=== PATIENT | female | born 1950 | race Caucasian/White ===

== ENCOUNTER 2017-03-10 07:53 | Inpatient (IN) | payer MEDICARE, OTHER ==
[2017-03-05 14:51] LABS: HEMOGLOBIN 12.4 g/dL (12.0-16.0)
[2017-03-05 15:04] LABS: CHLORIDE, SERUM 108 MMOL/L (96-112); CREATININE 0.95 MG/DL (0.55-1.02); GFR AFRICAN AMERICAN 72 ML/MIN (>=60); GFR NON AFRICAN AMERICAN 62 ML/MIN (>=60); POTASSIUM, SERUM 4.2 MMOL/L (3.5-5.3); SODIUM, SERUM 140 MMOL/L (135-148)
[2017-03-05 15:05] LABS: BUN (BLOOD UREA NITROGEN) 16 MG/DL (6-23); CO2 (CARBON DIOXIDE) 29 MMOL/L (24-34); GLUCOSE, SERUM 133 MG/DL (60-99)
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
--- NOTE | ~2017-03-10 | OP ---
Record Of Operation [facility] [address] [place]. [address] NAME: FREDERIC KENYON : 50 STATUS : ADM IN PAT#: [id number] AGE: 66 ADM/REG DATE : 03/10/17 MR#: [id number] REPORT SERV DATE: 03/15/17 DICTATED BY: LILLIANA LABOY II DATE: 03/15/17 REPORT STATUS : Draft TRANSCRIBED BY: MODL DATE: 03/15/17 DATE OF PROCEDURE: 03/10/2017 PREOPERATIVE DIAGNOSES: 1. Multilevel stenosis. 2. Degenerative scoliosis with L4-5 and L5-S1 spondylolisthesis. 3. Left greater than right lower extremity radiculopathy. POSTOPERATIVE DIAGNOSES: 1. Multilevel stenosis. 2. Degenerative scoliosis with L4-5 and L5-S1 spondylolisthesis. 3. Left greater than right lower extremity radiculopathy. PROCEDURES: 1. Lumbar laminectomy and facetectomy for decompression of the L4, L5, and S1 nerve roots. 2. Posterolateral arthrodesis, L2-3, L3-4, L4-5, and L5-S1. 3. Posterior segmental instrumentation, L2-S1. 4. Use of local autograft, allograft substitute, and bone morphogenic protein. 5. Use of the microscope and stereotactic spinal imaging. SURGEON: Lilliana Laboy M.D. FLUIDS: 1700 mL LR. ESTIMATED BLOOD LOSS: 200 mL. DRAINS: One drain. COMPLICATIONS: None. ANTIBIOTIC: Preoperatively. PREOPERATIVE HISTORY: This is very friendly 66-year-old female, who does have significant degeneration of her lumbar spine including scoliosis, stenosis, as well as spondylolisthesis at L4-5 and L5-S1. We discussed the pros and cons of the surgery. I discussed with her that she does have a certain amount of chronic pain, but did not believe, we can irradiate, specifically with regard to her low back pain. I discussed with her the surgery was better suited for improving upon leg pain versus back pain. However, I did suspect she could get some improvement with her back pain. We did discuss osteoporosis management also. We also discussed the risks of the surgery which include, but not limited to infection, abscess, CSF leak, foot drop, nerve root injury, and a small chance of stroke and . DESCRIPTION OF PROCEDURE: After informed consent was obtained, Ms Kenyon was brought to the operating room at her request. General anesthesia was achieved. She was placed in the prone position. The back was prepped and draped in a sterile fashion. The stereotactic spinal pin was placed into the right iliac crest and the intraoperative CT scan was Record Of Operation [address] [address] NAME: FREDERIC KENYON : 50 STATUS : ADM IN PAT#: [id number] AGE: 66 ADM/REG DATE : 03/10/17 MR#: [id number] REPORT SERV DATE: 03/15/17 DICTATED BY: LILLIANA LABOY II DATE: 03/15/17 REPORT STATUS : Draft TRANSCRIBED BY: ROULA DATE: 03/15/17 completed. Stereotactic guidance was then used throughout the case. Next, the dissection was performed from L2-S1. The deep retractors were placed after the transverse processes were dissected upon including the sacral ala. At this point, the facetectomy was performed at L4-5 and L5-S1. Severe spinal stenosis was identified. The L4, L5, and S1 nerve roots all exhibited significant compression from the ligamentum flavum and from the facets themselves. Please note, the decompression was performed under microscopic visualization. Next, the stereotactic guidance system was used for placement of adequate pedicular fixation bilaterally. A repeat CT scan confirmed acceptable placement of the implants. The bone was felt to be mild to moderately osteoporotic. Next, the rods were then well-assembled and final tightening was performed. We also performed some reduction of her scoliosis with distraction techniques. Next, the area was fully irrigated followed by decortication of the transverse process of L2, L3, L4, L5, and the sacral ala. Local autograft, allograft substitute, and bone morphogenic protein were then placed along the decorticated surfaces. A deep drain was placed followed by standard closure. The patient was then extubated and transferred to the PACU in stable condition. CELINE/ROULA Lilliana Laboy II, M.D. / [id number] CC: Jaxon Delgado II M.D.
--- NOTE | ~2017-03-10 | DS ---
Discharge Summary [facility] [address] [place]. [address] NAME: FREDERIC AVILEZ : 50 STATUS : DIS IN PAT#: [id number] AGE: 66 ADM/REG DATE : 03/10/17 MR#: [id number] REPORT SERV DATE: 03/23/17 DICTATED BY: LILLIANA LABOY II DATE: 03/23/17 REPORT STATUS : Draft TRANSCRIBED BY: ROULA DATE: 03/23/17 Data Collection from hospitalization DISCHARGE DIAGNOSES: 1. Multilevel stenosis. 2. Degenerative scoliosis with L4-5 and L5-S1 spondylolisthesis. 3. Left greater than right lower extremity radiculopathy. 4. Depression. 5. Gastroesophageal reflux disease. 6. History of stroke. 7. Osteoarthritis. 8. Rheumatoid arthritis. 9. Tobacco use. CONSULTATION: Dr. Kirby Araya. PROCEDURES PERFORMED: Lumbar laminectomy and facetectomy for decompression of the L4, L5, and S1 nerve roots; posterolateral arthrodesis L2-3, L3-4, L4-5 and L5-S1; posterior segmental instrumentation, L2-S1; use of local autograft, allograft substitute, and bone morphogenetic protein; use of microscope and stereotactic spinal imaging, 03/10/2017. PATHOLOGY: Bone and soft tissue, lumbar/sacral excision-nonspecific degenerative changes. MEDICATIONS: Celexa 40 mg at bedtime, Colace 100 mg twice a day, Estrace 1 mg at bedtime, Neurontin 900 mg three times a day as needed, Protonix 40 mg twice a day, DuoNeb 3 mL via inhaler every eight hours as instructed, albuterol 0.63 mg via inhaler every four hours as needed, Coumadin 2.5 mg daily as instructed, Proventil two puffs via inhaler every four hours as needed, Tylenol 1000 mg every six hours as needed, Catapres 0.2 mg three times a day as needed, Valium 2 mg one to two tablets three times a day as needed, oxycodone 15 mg one to two tablets every four to six hours as needed, MS Contin 30 mg SR one every 12 hours as needed. CONDITION AT DISCHARGE: Stable. DISPOSITION: The patient was discharged home with diet and activities as instructed. She would follow up with Dr. Tristan Cutler the week following discharge. She would follow up with me three weeks following discharge. HOSPITAL COURSE: This is a 66-year-old female, who has multilevel stenosis. She has degenerative scoliosis with L4-5 and L5-S1 spondylolisthesis. She also has bilateral lower extremity radiculopathy, left greater than right. Treatment options were discussed and it was elected to proceed with surgical intervention. She was admitted to the hospital at this time for further evaluation and treatment. Upon admission, she was taken to the operating room, where she underwent the above-mentioned procedure. She tolerated this well and there were no complications. On postop day one, she was stable. She had a normal respiratory effort. She was evaluated by Physical Therapy. On postop day two, she was tearful due to low back pain. Her lower extremity radiculopathy Discharge Summary [address] [place]. [address] NAME: FREDERIC AVILEZ : 50 STATUS : DIS IN PAT#: [id number] AGE: 66 ADM/REG DATE : 03/10/17 MR#: [id number] REPORT SERV DATE: 03/23/17 DICTATED BY: LILLIANA LABOY II DATE: 03/23/17 REPORT STATUS : Draft TRANSCRIBED BY: ROULA DATE: 03/23/17 was improving. She just complained of uncontrolled back pain. She does have a history of opioid tolerance. Medications were adjusted for better pain control. On the , she still complained of low back pain. 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 We encouraged her to mobilize. She was seen by Dr. Kirby Araya regarding hypotension. She had been on a ROCK ROOM WORKER and was transitioned to p.o. She still required fairly increased levels of medication. After transition to p.o., the patient was noted to have a slight decrease in blood pressure into the 90s/50 systolic. The patient reports that she has these change and fluctuation of blood pressures even at home. She was fairly tearful due to her pain symptoms, although she still reported some lower pain. She said she has not had a good bowel movement since arrival and does have some pain in that area. She had no real nausea or vomiting. She does have shoulder pain at her baseline from her fibromyalgia. She is on O2 for COPD. A nicotine patch was placed for her nicotine use. Her pain had not improved with anything and was worsened by everything, including palpation, moderate to severe and this had been occurring postoperatively. IV fluids were going to be given with lactated Ringer's. Naloxone would be continued as needed. We were going to check an x-ray, urinalysis, and blood cultures. Procalcitonin level was also going to be checked. She was given a dose of Toradol. A dose of Relistor was going to be given and we would then give Movantik suppository enema as needed. On 03/14/2017, she was very drowsy and difficult to arouse. She had had decreased blood pressure through the night. IV fluid bolus was given. The next day, she was more alert. She had no edema. Her dressings were clean, dry, and intact. Discharge planning was performed. On 03/16/2017, she was transfused. She was alert and cooperative. She had no focal deficits. She said she was feeling better. She did have a bowel movement. She was ambulating in the franco. She still complained of significant back pain. She did complain that the catheter hurt. IV fluids were stopped. A clean-catch urinalysis was going to be checked. The Acuna was removed. Coumadin was going to be resumed. Discharge instructions were given. Due to her improved and stable condition, she was discharged home with the above-stated instructions. Information collected by: Evelyn Lin I submit the above information as my discharge summary. TG/ROULA Lilliana Laboy II, M.D. / [id number] CC: Jaxon Delgado II, M.D.
[~2017-03-10 07:53] MED LIST: ACET500CAP PO; ALBUTEROL0.63 MG/3 INH; AMPI500; C2 PO; C25 PO; C5 PO; CAT2 PO; CELEXA40 MG PO; CYMBALTA60 PO; DURA100 TOP; ESTRACE1 MG PO; FLUCON1 PO; GEODON40 MG PO; LYRICA75 PO; MOBIC15 MG PO; NEUR300 PO; P10 PO; P20 PO; PERCOCET 10/3251 TAB PO; PERCOCET1 TA4 PO; PR25 PO; PROTONIX PO; PROTONIX20 MG PO; PROVENTSOL INH; PROVHFA INH; REQUIP2 PO; ROXICODONE15 MG PO; SOMATAB PO; SYMBYAX PO; VITAMIN D1000 UNI1 PO; XANAX1 MG PO; XANAX2 MG PO; ZITHROMAX500 MG; ZYP5 PO; oxygen
[2017-03-10 08:40] LABS: PROTIME (NOT ORD) 12.7 SEC (12.0-14.5)
[2017-03-14 10:46] LABS: BUN (BLOOD UREA NITROGEN) 15 MG/DL (6-23); CALCIUM, SERUM 8.3 MG/DL (8.5-10.4); CHLORIDE, SERUM 106 MMOL/L (96-112); CO2 (CARBON DIOXIDE) 32 MMOL/L (24-34); CREATININE 0.87 MG/DL (0.55-1.02); GFR AFRICAN AMERICAN 80 ML/MIN (>=60); GFR NON AFRICAN AMERICAN 69 ML/MIN (>=60); POTASSIUM, SERUM 3.7 MMOL/L (3.5-5.3); SODIUM, SERUM 139 MMOL/L (135-148)
[2017-03-14 10:47] LABS: BASOPHILS 0.1 %; BASOPHILS ABSOLUTE 0.01 10/3/uL (0.0-0.16); EOSINOPHILS 2.4 %; EOSINOPHILS ABSOLUTE 0.29 10/3/uL (0.0-0.53); GLUCOSE, SERUM 90 MG/DL (60-99); IMMATURE GRANULOCYTES 0.3 %; IMMATURE GRANULOCYTES ABSOLUTE 0.03 10/3/uL (0.0-0.11); LYMPHOCYTES 20.3 %; LYMPHOCYTES ABSOLUTE 2.41 10/3/uL (0.67-4.30); MEAN CORPUSCULAR HEMOGLOB 27.1 pg (26.0-34.0); MEAN CORPUSCULAR VOLUME 86.4 fL (80-100); MEAN PLATELET VOLUME 9.5 fL (9.2-13.0); MONOCYTES 4.8 %; MONOCYTES ABSOLUTE 0.57 10/3/uL (0.21-1.20); NEUTROPHILS 72.1 %; NEUTROPHILS ABSOLUTE 8.55 10/3/uL (2.02-8.40); PLATELET COUNT 263 10/3/uL (150-400); WHITE BLOOD CELLS 11.9 10/3/uL (4.5-10.5)
[2017-03-14 10:54] LABS: HEMATOCRIT 28.7 % (36.0-48.0); MANUAL DIFF NO %; MEAN CORPUS HGB CONC 31.4 g/dL (32.0-36.0); RBC DISTRIBUTION WIDTH 15.4 % (12.0-16.0); RED CELL COUNT 3.32 10/6/uL (4.0-5.6)
[2017-03-14 12:04] LABS: PROCALCITONIN 0.14 ng/mL (<0.5)
[2017-03-15 03:04] LABS: ASCORBIC ACID (UR NOT ORDER) NEG (NEG); BILIRUBIN, URINE NEGATIVE (NEG); KETONE, URINE NEGATIVE (NEG); LEUKOCYTE ESTERASE(NOT OR NEG (NEG); WBC (NOT ORDERED) (RFLEX) 2 (0-5)
[2017-03-15 07:57] LABS: BASOPHILS 0.2 %; BASOPHILS ABSOLUTE 0.02 10/3/uL (0.0-0.16); EOSINOPHILS 5.5 %; EOSINOPHILS ABSOLUTE 0.46 10/3/uL (0.0-0.53); HEMOGLOBIN 7.4 g/dL (12.0-16.0); IMMATURE GRANULOCYTES 0.2 %; IMMATURE GRANULOCYTES ABSOLUTE 0.02 10/3/uL (0.0-0.11); LYMPHOCYTES 26.3 %; LYMPHOCYTES ABSOLUTE 2.21 10/3/uL (0.67-4.30); MEAN CORPUS HGB CONC 31.4 g/dL (32.0-36.0); MEAN CORPUSCULAR HEMOGLOB 26.8 pg (26.0-34.0); MEAN CORPUSCULAR VOLUME 85.5 fL (80-100); MEAN PLATELET VOLUME 9.2 fL (9.2-13.0); MONOCYTES 5.1 %; MONOCYTES ABSOLUTE 0.43 10/3/uL (0.21-1.20); NEUTROPHILS 62.7 %; NEUTROPHILS ABSOLUTE 5.25 10/3/uL (2.02-8.40); PLATELET COUNT 240 10/3/uL (150-400); RBC DISTRIBUTION WIDTH 15.5 % (12.0-16.0); RED CELL COUNT 2.76 10/6/uL (4.0-5.6); WHITE BLOOD CELLS 8.4 10/3/uL (4.5-10.5)
[2017-03-15 07:58] LABS: HEMATOCRIT 23.6 % (36.0-48.0); MANUAL DIFF NO %
[2017-03-15 08:09] LABS: A/G RATIO 0.6 (0.7-1.9); ALBUMIN 1.9 G/DL (3.5-5.0); ALKALINE PHOSPHATASE 127 U/L (45-117); BUN (BLOOD UREA NITROGEN) 13 MG/DL (6-23); CALCIUM, SERUM 8.2 MG/DL (8.5-10.4); CHLORIDE, SERUM 108 MMOL/L (96-112); CO2 (CARBON DIOXIDE) 32 MMOL/L (24-34); CREATININE 0.67 MG/DL (0.55-1.02); GFR AFRICAN AMERICAN 106 ML/MIN (>=60); GFR NON AFRICAN AMERICAN 92 ML/MIN (>=60); GLOBULIN 3.2 G/DL (2.5-4.1); GLUCOSE, SERUM 100 MG/DL (60-99); POTASSIUM, SERUM 4.6 MMOL/L (3.5-5.3); SGOT(AST) 38 U/L (5-40); SGPT(ALT) 28 U/L (5-65); SODIUM, SERUM 144 MMOL/L (135-148); TOTAL BILIRUBIN 0.4 MG/DL (0-1.2); TOTAL PROTEIN 5.1 G/DL (6.0-8.5)
[2017-03-16 08:33] LABS: CALCIUM, SERUM 8.7 MG/DL (8.5-10.4); CHLORIDE, SERUM 110 MMOL/L (96-112); CREATININE 0.67 MG/DL (0.55-1.02); GFR AFRICAN AMERICAN 106 ML/MIN (>=60); GFR NON AFRICAN AMERICAN 92 ML/MIN (>=60); GLUCOSE, SERUM 86 MG/DL (60-99); POTASSIUM, SERUM 4.4 MMOL/L (3.5-5.3); SODIUM, SERUM 140 MMOL/L (135-148)
[2017-03-16 08:34] LABS: BUN (BLOOD UREA NITROGEN) 7 MG/DL (6-23); CO2 (CARBON DIOXIDE) 27 MMOL/L (24-34)
[2017-03-16 09:30] LABS: BASOPHILS 0.3 %; BASOPHILS ABSOLUTE 0.02 10/3/uL (0.0-0.16); EOSINOPHILS 6.1 %; EOSINOPHILS ABSOLUTE 0.47 10/3/uL (0.0-0.53); HEMATOCRIT 24.1 % (36.0-48.0); HEMOGLOBIN 7.6 g/dL (12.0-16.0); IMMATURE GRANULOCYTES 0.3 %; IMMATURE GRANULOCYTES ABSOLUTE 0.02 10/3/uL (0.0-0.11); LYMPHOCYTES 28.9 %; LYMPHOCYTES ABSOLUTE 2.22 10/3/uL (0.67-4.30); MEAN CORPUS HGB CONC 31.5 g/dL (32.0-36.0); MEAN CORPUSCULAR HEMOGLOB 27.6 pg (26.0-34.0); MEAN CORPUSCULAR VOLUME 87.6 fL (80-100); MEAN PLATELET VOLUME 10.2 fL (9.2-13.0); MONOCYTES 5.6 %; MONOCYTES ABSOLUTE 0.43 10/3/uL (0.21-1.20); NEUTROPHILS 58.8 %; NEUTROPHILS ABSOLUTE 4.51 10/3/uL (2.02-8.40); PLATELET COUNT 247 10/3/uL (150-400); RED CELL COUNT 2.75 10/6/uL (4.0-5.6); WHITE BLOOD CELLS 7.7 10/3/uL (4.5-10.5)
[2017-03-16 09:31] LABS: MANUAL DIFF NO %
[2017-03-16 13:52] LABS: ASCORBIC ACID (UR NOT ORDER) NEG (NEG); BILIRUBIN, URINE NEGATIVE (NEG); KETONE, URINE NEGATIVE (NEG); LEUKOCYTE ESTERASE(NOT OR SMALL (NEG); WBC (NOT ORDERED) (RFLEX) 22 (0-5)
[2017-03-16 15:34] LABS: HEMATOCRIT 31.2 % (36.0-48.0); HEMOGLOBIN 10.2 g/dL (12.0-16.0)
[2017-03-16] MEDS ORDERED: V2 PO (16:24)
[2017-03-16] MEDS ORDERED: MSCONTIN PO (16:25)
[2017-06-18] MEDS ORDERED: CELEXA40 MG PO (18:10)
[2017-06-18] MEDS ORDERED: ESTRACE1 MG PO (18:11)
[2017-06-18] MEDS ORDERED: C25 PO (18:11)
[2017-06-18] MEDS ORDERED: LIOR10 PO (18:11)
[2017-06-18] MEDS ORDERED: CAT2 PO (18:12)
[2017-06-18] MEDS ORDERED: PROTONIX PO (18:12)
[2017-06-18] MEDS ORDERED: NEUR600 PO (18:12)
[2017-06-18] MEDS ORDERED: 8 HOUR650 MG PO (18:13)
[2017-06-18] MEDS ORDERED: PR25 PO (18:13)
[2017-06-18] MEDS ORDERED: CYMBALTA60 PO (18:13)
[2017-06-20] MEDS ORDERED: VIBRATAB100 MG PO (15:33)
[2017-06-20] MEDS ORDERED: DURICEF PO (15:33)
[2017-06-20] MEDS ORDERED: V5 PO (15:33)
[2017-06-20] MEDS ORDERED: MSCONT15 PO (15:34)
[2017-06-20] MEDS ORDERED: PERCOCET 10/3251 TAB PO (15:34)
== END 2017-03-16 17:03 | disposition home or self-care (01) | DRG 457 ==
LOC: SDC/OF 07:53 → PACU 13:54 → 3SO 15:34
PROVIDERS: Nurse Practitioner; Orthopaedic Surgery; Physician Assistant; Student in an Organized Health Care Education/Training Program
PROC: 0SG1071 Fusion of 2 or more Lumbar Vertebral Joints with Autologous Tissue Substitute, Posterior Approach, Posterior Column, Open Approach (ICD-10-PCS; principal; 2017-03-10 09:45)
PROC: 0SG3071 Fusion of Lumbosacral Joint with Autologous Tissue Substitute, Posterior Approach, Posterior Column, Open Approach (ICD-10-PCS; 2017-03-10 09:45)
PROC: 4A11X4G Monitoring of Peripheral Nervous Electrical Activity, Intraoperative, External Approach (ICD-10-PCS; 2017-03-10 09:45)
PROC: 30233N0 Transfusion of Autologous Red Blood Cells into Peripheral Vein, Percutaneous Approach (ICD-10-PCS; 2017-03-16)
DX: M41.86 Other forms of scoliosis, lumbar region (principal); D62 Acute posthemorrhagic anemia; I95.9 Hypotension, unspecified; M79.7 Fibromyalgia; F17.210 Nicotine dependence, cigarettes, uncomplicated; K21.9 Gastro-esophageal reflux disease without esophagitis; J44.9 Chronic obstructive pulmonary disease, unspecified; Z86.73 Personal history of transient ischemic attack (TIA), and cerebral infarction without residual deficits
CPT/HCPCS: 36415; 71010; 80048; 80053; 81001; 82962; 83605; 83735; 84145; 85014; 85018; 85025; 85610; 86850; 86870; 86880; 86880-59; 86900; 86901; 86902; 86920; 86922; 87040; 87077; 87086; 87186; 87641; 88304; 88311; 93005; 94640; 97110-GP; 97116-GP; 97161-GP; 97530-GP; A9270-GY; C1713; C1768; G8978-CK-GP; G8979-CJ-GP; J0461; J0690; J1170; J1885; J2250; J2370; J2405; J2710; J3010; J3370; P9016; P9045

== ENCOUNTER 2017-03-23 21:46 | Inpatient (IN) | payer MEDICARE, OTHER ==
[2017-03-22 16:25] LABS: BASOPHILS 0.2 %; BASOPHILS ABSOLUTE 0.02 10/3/uL (0.0-0.16); EOSINOPHILS 0.4 %; EOSINOPHILS ABSOLUTE 0.05 10/3/uL (0.0-0.53); HEMATOCRIT 31.8 % (36.0-48.0); HEMOGLOBIN 9.8 g/dL (12.0-16.0); IMMATURE GRANULOCYTES 0.2 %; IMMATURE GRANULOCYTES ABSOLUTE 0.02 10/3/uL (0.0-0.11); LYMPHOCYTES 9.2 %; LYMPHOCYTES ABSOLUTE 1.11 10/3/uL (0.67-4.30); MEAN CORPUS HGB CONC 30.8 g/dL (32.0-36.0); MEAN CORPUSCULAR HEMOGLOB 26.8 pg (26.0-34.0); MEAN CORPUSCULAR VOLUME 86.9 fL (80-100); MEAN PLATELET VOLUME 9.5 fL (9.2-13.0); MONOCYTES 8.4 %; MONOCYTES ABSOLUTE 1.02 10/3/uL (0.21-1.20); NEUTROPHILS 81.6 %; NEUTROPHILS ABSOLUTE 9.89 10/3/uL (2.02-8.40); RBC DISTRIBUTION WIDTH 15.4 % (12.0-16.0)
[2017-03-22 16:29] LABS: MANUAL DIFF NO %; PLATELET COUNT 365 10/3/uL (150-400); RED CELL COUNT 3.66 10/6/uL (4.0-5.6); WHITE BLOOD CELLS 12.1 10/3/uL (4.5-10.5)
--- NOTE | ~2017-03-23 | IDS ---
Interim Discharge Summary [facility] [address] [place]. [address] NAME: FREDERIC AVILEZ : 50 STATUS : ADM IN [facility]#: [id number] AGE: 66 ADM/REG DATE : 03/24/17 MR#: [id number] REPORT SERV DATE: 03/29/17 DICTATED BY: CHELSEA MCGEE DATE: 03/29/17 REPORT STATUS : Draft TRANSCRIBED BY: MODL DATE: 03/29/17 ADMISSION DATE: 03/24/2017 DISCHARGE DATE: PROBLEM LIST: 1. Sepsis with infected back surgery wound with culture positive for Serratia, the patient's antibiotics was changed to Merrem on 03/28/2017, by Dr. Maier. 2. Chronic pain and chronic opioid use. 3. Postop anemia status post one unit of blood transfusion. 4. Hypotension probably due to opioid use. HISTORY OF PRESENT ILLNESS: This is a 66-year-old female patient who came to the hospital with sepsis picture. Please see dictated H and P. The patient was admitted to the hospital with sepsis, had an abnormal urine analysis as well; however, her clinical pictures were more consistent with wound infection. She was sent to aspiration to intervention radiology. Dr. Mera did the aspiration and sent the culture at that time. He obtained 200 mL of pus. Therefore, the patient was on antibiotics and because of that finding, Dr. Laboy took her to the OR and did an evacuation and incision and drain and cleaned and also that specimen was also growing the Serratia as well. The patient has been managed with broad-spectrum antibiotics. She is on the IMCU due to the hypotension at this point. She is on Levophed lower dose. It is more likely related with her opioid use, she has been on a high dose of opioid use. Therefore, we will try to wean off the Levophed while we are minimizing opioid use, continuing antibiotics, and physical therapy. EKL/MODL Chelsea Mcgee M.D. / [id number] CC: Jaxon Clarke M.D.
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
--- NOTE | ~2017-03-23 | OP ---
Record Of Operation [facility] [address] [place]. [address] NAME: FREDERIC AVILEZ : 50 STATUS : ADM IN [facility]#: [id number] AGE: 66 ADM/REG DATE : 03/24/17 MR#: [id number] REPORT SERV DATE: 03/29/17 DICTATED BY: LILLIANA LABOY II DATE: 03/29/17 REPORT STATUS : Draft TRANSCRIBED BY: MODSwapna DATE: 03/29/17 DATE OF PROCEDURE: 03/26/2017 PREOPERATIVE DIAGNOSES: 1. Status post lumbar fusion, recent. 2. History of recent fevers with inpatient admission. POSTOPERATIVE DIAGNOSES: 1. Status post lumbar fusion, recent. 2. History of recent fevers with inpatient admission. 3. No empiric evidence of postoperative wound infection. PROCEDURE: Exploration of lumbar incision with irrigation of postoperative seroma. SURGEON: Lilliana Laboy M.D. FLUIDS: 300 mL LR. ESTIMATED BLOOD LOSS: 20 mL. [employer]PER[employer]OR [employer]: Rocky Adrian. CULTURES TAKEN: Intraoperatively. PREOPERATIVE HISTORY: This is a 66-year-old female, who is recently status post lumbar decompression and fusion. She was readmitted with fever and possible sepsis. She has had a recent urinary tract infection also. I was asked to see her. Infectious Disease was also seeing her. Her lumbar incision was intact without any erythema, edema, for fluctuance. She was having pain in this area of course, but she is recently status post a rather large surgery. She was recently admitted to the rehab facility overall because she simply was still struggling with postoperative pain control and mobility. This is frankly not acute surprise, given her fairly low pain threshold that we identified during her postoperative course. Dr. Maier notified me on Wednesday afternoon that the patient had purulence in the back. He and I discussed this, and I overall voiced significant doubts as to the validity of this. I frankly have never seen someone have for example 200 mL of purulence in the back without any superficial findings. Again, this patient has no superficial findings in terms of no erythema, drainage. She does not have any fluctuance. She of course did have pain, but of course she is recently status post a large lumbar surgery. To my dismay, it appears that one of the physicians had ordered an aspiration and drainage of the fluid identified as expected on postoperative imaging. This was done without my knowledge or approval. This is a recently status post large lumbar fusion and decompression. Again, Wednesday afternoon, I was notified by Dr. Maier that there was 200 mL of purulence in the area. Again, I found this extremely hard to believe. However, he essentially forced my to take the patient to the operating room based upon this information. Record Of Operation [facility] [address] [place]. [address] NAME: FREDERIC AVILEZ : 50 STATUS : ADM IN PAT#: [id number] AGE: 66 ADM/REG DATE : 03/24/17 MR#: [id number] REPORT SERV DATE: 03/29/17 DICTATED BY: LILLIANA LABOY II DATE: 03/29/17 REPORT STATUS : Draft TRANSCRIBED BY: ROULA DATE: 03/29/17 I discussed this with the patient and the family. In preoperative holding, we once again looked at the lumbar incision which was again normal as it had been the day before. However, again to my dismay, it appeared that there was a CHRISTY drain which had been inserted. This had normal serosanguineous fluid without any cloudiness. DESCRIPTION OF PROCEDURE: At this point, the patient was taken to the operating room, and general anesthesia was achieved. She was placed in the prone position and the back was prepped and draped in the sterile fashion. The incision was then opened. There was no evidence of any purulence in the superficial tissues. The superficial compartment was irrigated. Next, the fascial sutures were removed, and the deep compartment was identified. Again, there was no evidence of any purulence or suspicious fluid. The hardware was identified. A canal was identified and no suspicious findings noted. Deep cultures were taken. The area was now irrigated followed by placement of a CHRISTY drain. The fascia was then closed. The skin and subcutaneous tissues were now closed and standard dressings were applied. The patient was extubated and transferred to the PACU in stable condition. My overall concern is fairly clear above. My other concern is now that she has had a second operation and skin closure which now puts her at risk for a postoperative wound infection which at this point, I do not believe she has had. CELINE/ROULA Lilliana Laboy II, M.D. / [id number] CC: Jaxon Clarke M.D.
--- NOTE | ~2017-03-23 | DS ---
Discharge Summary [facility] [address] [place]. [address] NAME: FREDERIC AVILEZ : 50 STATUS : ADM IN [facility]#: [id number] AGE: 66 ADM/REG DATE : 03/24/17 MR#: [id number] REPORT SERV DATE: 04/02/17 DICTATED BY: Sofia ROGERS DATE: 04/02/17 REPORT STATUS : Draft TRANSCRIBED BY: MODL DATE: 04/02/17 ADMISSION DATE: 03/24/2017 DISCHARGE DATE: 04/02/2017 DIAGNOSES AT DISCHARGE: Lumbar wound infection; culture equals Serratia sepsis, resolved, present on admission; Escherichia coli urinary tract infection, present on admission, treated; chronic pain syndrome, adrenal insufficiency, on chronic Cortef; moderate protein- calorie malnutrition. CONSULTS: Infectious Disease, Spine Surgery, Interventional Radiology. PROCEDURES: CT-guided drainage of lumbar fluid collection done by Dr. Mera, also lumbar exploration of incision and drainage of lumbar fluid collection done by Dr. Laboy on 03/26/2017. BRIEF HOSPITAL COURSE: A 66-year-old female patient was admitted with sepsis, originally felt to be related to UTI with culture positive urine for E coli. However on nearing her antibiotics, she began became ill and spiked a temperature of 103 which necessitated a broader evaluation for the source of her fever. Imaging of her abdomen and spine was obtained showing a large fluid correction around her recent lumbar spine surgery. CT-guided drainage was obtained removing purulent material that was culture positive for Serratia. The patient continued on antimicrobial therapy under the care of Infectious Disease, but her initial antibiotics were transitioned to meropenem based on her culture data and has subsequently been transitioned to high-dose cefepime. The patient was seen by Spine surgery and she did have a washout surgery done with drain placement on 03/26/[address] Laboy. Postoperatively, she has had an uneventful course. She has remained afebrile. She has tolerated her antimicrobial therapy via PICC line without difficulty. Her labs have been unremarkable. She was initially hypotensive on admission. Cortisol levels were inappropriately low. She was given IV Solu-Cortef for roughly 72 hours and transitioned to oral Cortef. She will continue on this in a tapering fashion for the next three weeks after discharge. Arrangements were made on 04/02/2017 for home IV antibiotics. She will have an additional 35 days of IV cefepime under the care of Dr. David Maier, Infectious Disease. We will check weekly CBC, CMP, sedimentation rate, and PT and INR. The patient will discharge home today in stable condition on her home medications with the addition of oral Cortef that will taper as mentioned above and her ongoing IV antimicrobial therapy per Infectious Disease. She will follow up with Dr. Maier in six weeks. She will follow up with Dr. Laboy in approximately two to three weeks and follow up with her primary care provider in approximately one month. Prescriptions for pain medications have been written by Ortho/Spine. I have also written her tapering dose of Cortef for her to use at home. As mentioned above, she will have weekly lab monitoring via home health. We will also set up physical therapy via home health for ongoing mobilization. Of note, her CHRISTY drain was discharged prior to her going home. Of note, greater than 30 minutes was required to assistant counsel the patient regarding her medications to prepare prescriptions to complete discharge med reconciliation form and to provide appropriate documentation. Discharge Summary [address] [address] NAME: FREDERIC AVILEZ : 50 STATUS : ADM IN [facility]#: [id number] AGE: 66 ADM/REG DATE : 03/24/17 MR#: [id number] REPORT SERV DATE: 04/02/17 DICTATED BY: Sofia ROGERS DATE: 04/02/17 REPORT STATUS : Draft TRANSCRIBED BY: ROULA DATE: 04/02/17 DICTATED BY: Sofia Rogers M.D. [facility]/ROULA Sofia Rogers M.D. / [id number] CC: Jaxon Burciaga M.D.
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
[~2017-03-23 21:46] MED LIST changes: +MSCONTIN PO; +V2 PO
[2017-03-23 22:37] LABS: BASOPHILS 0.2 %; BASOPHILS ABSOLUTE 0.02 10/3/uL (0.0-0.16); EOSINOPHILS 0.1 %; EOSINOPHILS ABSOLUTE 0.01 10/3/uL (0.0-0.53); ER CBC TAT 0 Hrs 09 Mins; HEMATOCRIT 29.2 % (36.0-48.0); HEMOGLOBIN 9.5 g/dL (12.0-16.0); IMMATURE GRANULOCYTES 0.2 %; IMMATURE GRANULOCYTES ABSOLUTE 0.02 10/3/uL (0.0-0.11); LYMPHOCYTES 5.8 %; LYMPHOCYTES ABSOLUTE 0.51 10/3/uL (0.67-4.30); MEAN CORPUSCULAR HEMOGLOB 27.9 pg (26.0-34.0); MEAN CORPUSCULAR VOLUME 85.6 fL (80-100); MEAN PLATELET VOLUME 9.3 fL (9.2-13.0); MONOCYTES 6.1 %; MONOCYTES ABSOLUTE 0.53 10/3/uL (0.21-1.20); NEUTROPHILS 87.6 %; NEUTROPHILS ABSOLUTE 7.63 10/3/uL (2.02-8.40); PLATELET COUNT 392 10/3/uL (150-400); RED CELL COUNT 3.41 10/6/uL (4.0-5.6); WHITE BLOOD CELLS 8.7 10/3/uL (4.5-10.5)
[2017-03-23 22:39] LABS: MEAN CORPUS HGB CONC 32.5 g/dL (32.0-36.0)
[2017-03-23 22:40] LABS: MANUAL DIFF NO %
[2017-03-23 22:47] LABS: INTERNATIONAL NORMAL RATI 1.9 UNITS (-); PARTIAL THROMBO TIME 62.6 SEC (22.5-37.2)
[2017-03-23 22:48] LABS: PROTIME (NOT ORD) 21.9 SEC (12.0-14.5)
[2017-03-23 22:51] LABS: ASCORBIC ACID (UR NOT ORDER) NEG (NEG); BILIRUBIN, URINE NEGATIVE (NEG); ER URINALYSIS TAT 0 Hrs 23 Mins; KETONE, URINE NEGATIVE (NEG); LEUKOCYTE ESTERASE(NOT OR LARGE (NEG); NITRITE (URINE) NEG (NEG)
[2017-03-23 22:53] LABS: WBC (NOT ORDERED) (RFLEX) > 182 (0-5)
[2017-03-23 22:54] LABS: A/G RATIO 0.6 (0.7-1.9); ACETAMINOPHEN LEVEL (TYLENOL) < 2.0 MCG/ML (10.0-20.0); ALBUMIN 2.7 G/DL (3.5-5.0); ALCOHOL < 10 MG/DL (0); ALKALINE PHOSPHATASE 191 U/L (45-117); BUN (BLOOD UREA NITROGEN) 15 MG/DL (6-23); CALCIUM, SERUM 9.1 MG/DL (8.5-10.4); CHLORIDE, SERUM 101 MMOL/L (96-112); CO2 (CARBON DIOXIDE) 27 MMOL/L (24-34); CREATININE 0.92 MG/DL (0.55-1.02); GFR AFRICAN AMERICAN 75 ML/MIN (>=60); GFR NON AFRICAN AMERICAN 65 ML/MIN (>=60); GLOBULIN 4.4 G/DL (2.5-4.1); GLUCOSE, SERUM 95 MG/DL (60-99); POTASSIUM, SERUM 3.6 MMOL/L (3.5-5.3); SALICYLATE 2.4 MG/DL (-); SGOT(AST) 31 U/L (5-40); SGPT(ALT) 17 U/L (5-65); SODIUM, SERUM 133 MMOL/L (135-148); TOTAL BILIRUBIN 0.8 MG/DL (0-1.2); TOTAL PROTEIN 7.1 G/DL (6.0-8.5)
[2017-03-23 22:57] LABS: LACTATE 2.3 MMOL/L (0.3-2.4)
[2017-03-23 23:14] LABS: AMPHETAMINES (NOT ORD) NEG (NEG); BARBITURATES (NOT ORDERED NEG (NEG); BENZODIAZEPINES (NOT ORD) POS (NEG); CANNABINOIDS (THC) NEG (NEG); COCAINE (NOT ORDERED) NEG (NEG); OPIATES POS (NEG); PHENCYCLIDINE(PCP) NEG (NEG); TRICYCLICS NEG (NEG)
[2017-03-23] MEDS ORDERED: NEUR600 PO (23:32)
[2017-03-23] MEDS ORDERED: V2 PO (23:32)
[2017-03-23] MEDS ORDERED: MSCONTIN PO (23:32)
[2017-03-23] MEDS ORDERED: COREG3 PO (23:33)
[2017-03-23] MEDS ORDERED: ROXICODONE15 MG PO (23:33)
[2017-03-23] MEDS ORDERED: CAT2 PO (23:33)
[2017-03-23] MEDS ORDERED: PROTONIX PO (23:33)
[2017-03-23] MEDS ORDERED: ESTRACE1 MG PO (23:33)
[2017-03-23] MEDS ORDERED: C25 PO (23:34)
[2017-03-23] MEDS ORDERED: CELEXA40 MG PO (23:34)
[2017-03-24 00:33] LABS: PROCALCITONIN 0.57 ng/mL (<0.5)
[2017-03-24 08:32] LABS: BASOPHILS 0.2 %; BASOPHILS ABSOLUTE 0.02 10/3/uL (0.0-0.16); EOSINOPHILS 0.2 %; EOSINOPHILS ABSOLUTE 0.02 10/3/uL (0.0-0.53); HEMOGLOBIN 8.1 g/dL (12.0-16.0); IMMATURE GRANULOCYTES 0.3 %; IMMATURE GRANULOCYTES ABSOLUTE 0.03 10/3/uL (0.0-0.11); LYMPHOCYTES 8.6 %; LYMPHOCYTES ABSOLUTE 0.78 10/3/uL (0.67-4.30); MEAN CORPUSCULAR HEMOGLOB 27.6 pg (26.0-34.0); MEAN CORPUSCULAR VOLUME 86.1 fL (80-100); MEAN PLATELET VOLUME 8.8 fL (9.2-13.0); MONOCYTES 6.9 %; MONOCYTES ABSOLUTE 0.63 10/3/uL (0.21-1.20); NEUTROPHILS 83.8 %; NEUTROPHILS ABSOLUTE 7.59 10/3/uL (2.02-8.40); PLATELET COUNT 365 10/3/uL (150-400); RBC DISTRIBUTION WIDTH 15.1 % (12.0-16.0); RED CELL COUNT 2.94 10/6/uL (4.0-5.6); WHITE BLOOD CELLS 9.1 10/3/uL (4.5-10.5)
[2017-03-24 08:33] LABS: HEMATOCRIT 25.3 % (36.0-48.0); MANUAL DIFF NO %
[2017-03-24 08:39] LABS: INTERNATIONAL NORMAL RATI 2.2 UNITS (-); PROTIME (NOT ORD) 24.4 SEC (12.0-14.5)
[2017-03-24 08:40] LABS: PARTIAL THROMBO TIME 60.5 SEC (22.5-37.2)
[2017-03-24 08:57] LABS: ALBUMIN 2.3 G/DL (3.5-5.0); CHLORIDE, SERUM 109 MMOL/L (96-112); CREATININE 0.59 MG/DL (0.55-1.02); GFR AFRICAN AMERICAN 111 ML/MIN (>=60); GFR NON AFRICAN AMERICAN 96 ML/MIN (>=60); POTASSIUM, SERUM 3.7 MMOL/L (3.5-5.3); SGOT(AST) 23 U/L (5-40); SGPT(ALT) 13 U/L (5-65); SODIUM, SERUM 138 MMOL/L (135-148); TOTAL BILIRUBIN 0.6 MG/DL (0-1.2); TOTAL PROTEIN 5.7 G/DL (6.0-8.5); TROPONIN I <0.02 NG/ML (<0.05)
[2017-03-24 08:58] LABS: A/G RATIO 0.7 (0.7-1.9); ALKALINE PHOSPHATASE 134 U/L (45-117); BUN (BLOOD UREA NITROGEN) 10 MG/DL (6-23); CO2 (CARBON DIOXIDE) 21 MMOL/L (24-34); GLOBULIN 3.4 G/DL (2.5-4.1); GLUCOSE, SERUM 124 MG/DL (60-99); ULTRASENSITIVE TSH 0.923 MCIU/ML (0.358-3.740)
[2017-03-25 05:59] LABS: BASOPHILS 0.1 %; BASOPHILS ABSOLUTE 0.01 10/3/uL (0.0-0.16); EOSINOPHILS 1.4 %; HEMOGLOBIN 8.1 g/dL (12.0-16.0); LYMPHOCYTES ABSOLUTE 0.97 10/3/uL (0.67-4.30); MANUAL DIFF NO %; MEAN CORPUS HGB CONC 32.4 g/dL (32.0-36.0); MEAN CORPUSCULAR HEMOGLOB 27.9 pg (26.0-34.0); MEAN CORPUSCULAR VOLUME 86.2 fL (80-100); MEAN PLATELET VOLUME 9.5 fL (9.2-13.0); MONOCYTES 7.1 %; MONOCYTES ABSOLUTE 0.49 10/3/uL (0.21-1.20); NEUTROPHILS 77.4 %; NEUTROPHILS ABSOLUTE 5.35 10/3/uL (2.02-8.40); PLATELET COUNT 338 10/3/uL (150-400); RBC DISTRIBUTION WIDTH 15.3 % (12.0-16.0); WHITE BLOOD CELLS 6.9 10/3/uL (4.5-10.5)
[2017-03-25 06:03] LABS: INTERNATIONAL NORMAL RATI 2.2 UNITS (-); PARTIAL THROMBO TIME 71.4 SEC (22.5-37.2); PROTIME (NOT ORD) 24.4 SEC (12.0-14.5)
[2017-03-25 06:15] LABS: A/G RATIO 0.6 (0.7-1.9); ALBUMIN 2.1 G/DL (3.5-5.0); ALKALINE PHOSPHATASE 127 U/L (45-117); CALCIUM, SERUM 7.9 MG/DL (8.5-10.4); CHLORIDE, SERUM 107 MMOL/L (96-112); CO2 (CARBON DIOXIDE) 24 MMOL/L (24-34); CREATININE 0.52 MG/DL (0.55-1.02); GFR AFRICAN AMERICAN 115 ML/MIN (>=60); GFR NON AFRICAN AMERICAN 100 ML/MIN (>=60); GLOBULIN 3.6 G/DL (2.5-4.1); POTASSIUM, SERUM 3.6 MMOL/L (3.5-5.3); SGOT(AST) 30 U/L (5-40); SGPT(ALT) 12 U/L (5-65); SODIUM, SERUM 139 MMOL/L (135-148); TOTAL BILIRUBIN 0.6 MG/DL (0-1.2); TOTAL PROTEIN 5.7 G/DL (6.0-8.5)
[2017-03-25 06:17] LABS: BUN (BLOOD UREA NITROGEN) 5 MG/DL (6-23); GLUCOSE, SERUM 78 MG/DL (60-99); TROPONIN I 0.08 NG/ML (<0.05)
[2017-03-25 07:23] LABS: PROCALCITONIN 1.06 ng/mL (<0.5)
[2017-03-25 22:50] LABS: ASCORBIC ACID (UR NOT ORDER) NEG (NEG); BILIRUBIN, URINE NEGATIVE (NEG); KETONE, URINE NEGATIVE (NEG); LEUKOCYTE ESTERASE(NOT OR TRACE (NEG); WBC (NOT ORDERED) (RFLEX) 9 (0-5)
[2017-03-26 04:11] LABS: INTERNATIONAL NORMAL RATI 1.7 UNITS (-)
[2017-03-26 04:13] LABS: PROTIME (NOT ORD) 19.9 SEC (12.0-14.5)
[2017-03-26 04:17] LABS: BASOPHILS 0.1 %; BASOPHILS ABSOLUTE 0.01 10/3/uL (0.0-0.16); EOSINOPHILS 1.8 %; EOSINOPHILS ABSOLUTE 0.13 10/3/uL (0.0-0.53); HEMATOCRIT 22.8 % (36.0-48.0); HEMOGLOBIN 7.4 g/dL (12.0-16.0); IMMATURE GRANULOCYTES 0.3 %; IMMATURE GRANULOCYTES ABSOLUTE 0.02 10/3/uL (0.0-0.11); LYMPHOCYTES 19.7 %; LYMPHOCYTES ABSOLUTE 1.45 10/3/uL (0.67-4.30); MEAN CORPUS HGB CONC 32.5 g/dL (32.0-36.0); MEAN CORPUSCULAR HEMOGLOB 27.8 pg (26.0-34.0); MEAN CORPUSCULAR VOLUME 85.7 fL (80-100); MEAN PLATELET VOLUME 9.3 fL (9.2-13.0); MONOCYTES ABSOLUTE 0.66 10/3/uL (0.21-1.20); NEUTROPHILS 69.1 %; NEUTROPHILS ABSOLUTE 5.08 10/3/uL (2.02-8.40); PLATELET COUNT 292 10/3/uL (150-400); RBC DISTRIBUTION WIDTH 15.4 % (12.0-16.0); RED CELL COUNT 2.66 10/6/uL (4.0-5.6); WHITE BLOOD CELLS 7.4 10/3/uL (4.5-10.5)
[2017-03-26 04:24] LABS: MANUAL DIFF NO %
[2017-03-26 04:27] LABS: BUN (BLOOD UREA NITROGEN) 5 MG/DL (6-23); CHLORIDE, SERUM 103 MMOL/L (96-112); CREATININE 0.69 MG/DL (0.55-1.02); GFR AFRICAN AMERICAN 105 ML/MIN (>=60); GFR NON AFRICAN AMERICAN 91 ML/MIN (>=60); GLUCOSE, SERUM 90 MG/DL (60-99); POTASSIUM, SERUM 3.4 MMOL/L (3.5-5.3); SODIUM, SERUM 139 MMOL/L (135-148)
[2017-03-26 04:28] LABS: CALCIUM, SERUM 8.9 MG/DL (8.5-10.4); CO2 (CARBON DIOXIDE) 29 MMOL/L (24-34)
[2017-03-26 06:41] LABS: PROCALCITONIN 0.64 ng/mL (<0.5)
[2017-03-26 08:23] LABS: POTASSIUM, SERUM 4.1 MMOL/L (3.5-5.3)
[2017-03-26 08:56] LABS: SED RATE 119 MM/HR (0-20)
[2017-03-26 12:02] LABS: FERRITIN 178 NG/ML (8-252); IRON BINDING CAPACITY 213 MCG/DL (225-410); TROPONIN I <0.02 NG/ML (<0.05)
[2017-03-26 12:03] LABS: % IRON SAT 10 % (20-50); IRON, SERUM 22 MCG/DL (35-150)
[2017-03-27 06:02] LABS: BASOPHILS 0.1 %; BASOPHILS ABSOLUTE 0.01 10/3/uL (0.0-0.16); EOSINOPHILS 0.1 %; EOSINOPHILS ABSOLUTE 0.01 10/3/uL (0.0-0.53); HEMATOCRIT 22.2 % (36.0-48.0); HEMOGLOBIN 7.1 g/dL (12.0-16.0); IMMATURE GRANULOCYTES 0.3 %; IMMATURE GRANULOCYTES ABSOLUTE 0.02 10/3/uL (0.0-0.11); LYMPHOCYTES 6.7 %; LYMPHOCYTES ABSOLUTE 0.45 10/3/uL (0.67-4.30); MEAN CORPUSCULAR HEMOGLOB 27.3 pg (26.0-34.0); MEAN CORPUSCULAR VOLUME 85.4 fL (80-100); MEAN PLATELET VOLUME 9.6 fL (9.2-13.0); MONOCYTES 2.8 %; MONOCYTES ABSOLUTE 0.19 10/3/uL (0.21-1.20); NEUTROPHILS ABSOLUTE 6.05 10/3/uL (2.02-8.40); PLATELET COUNT 355 10/3/uL (150-400); RBC DISTRIBUTION WIDTH 15.8 % (12.0-16.0); WHITE BLOOD CELLS 6.7 10/3/uL (4.5-10.5)
[2017-03-27 06:08] LABS: MANUAL DIFF NO %
[2017-03-27 06:19] LABS: A/G RATIO 0.6 (0.7-1.9); ALBUMIN 2.2 G/DL (3.5-5.0); BUN (BLOOD UREA NITROGEN) 6 MG/DL (6-23); CALCIUM, SERUM 8.4 MG/DL (8.5-10.4); CHLORIDE, SERUM 107 MMOL/L (96-112); CO2 (CARBON DIOXIDE) 31 MMOL/L (24-34); CREATININE 0.54 MG/DL (0.55-1.02); GFR AFRICAN AMERICAN 114 ML/MIN (>=60); GFR NON AFRICAN AMERICAN 98 ML/MIN (>=60); GLOBULIN 3.7 G/DL (2.5-4.1); POTASSIUM, SERUM 4.3 MMOL/L (3.5-5.3); SGOT(AST) 20 U/L (5-40); SGPT(ALT) 14 U/L (5-65); SODIUM, SERUM 143 MMOL/L (135-148); TOTAL BILIRUBIN 0.6 MG/DL (0-1.2); TOTAL PROTEIN 5.9 G/DL (6.0-8.5)
[2017-03-27 06:20] LABS: ALKALINE PHOSPHATASE 107 U/L (45-117); GLUCOSE, SERUM 156 MG/DL (60-99)
[2017-03-27 07:43] LABS: PROCALCITONIN 0.35 ng/mL (<0.5)
[2017-03-28 06:21] LABS: INTERNATIONAL NORMAL RATI 1.9 UNITS (-); PROTIME (NOT ORD) 21.7 SEC (12.0-14.5)
[2017-03-28 06:26] LABS: HEMATOCRIT 24.4 % (36.0-48.0); MEAN CORPUS HGB CONC 32.8 g/dL (32.0-36.0); MEAN CORPUSCULAR HEMOGLOB 27.9 pg (26.0-34.0); MEAN PLATELET VOLUME 9.3 fL (9.2-13.0); PLATELET COUNT 382 10/3/uL (150-400); RBC DISTRIBUTION WIDTH 15.4 % (12.0-16.0); RED CELL COUNT 2.87 10/6/uL (4.0-5.6); WHITE BLOOD CELLS 6.3 10/3/uL (4.5-10.5)
[2017-03-28 06:27] LABS: MANUAL DIFF YES %
[2017-03-28 06:32] LABS: A/G RATIO 0.6 (0.7-1.9); BUN (BLOOD UREA NITROGEN) 5 MG/DL (6-23); CALCIUM, SERUM 8.2 MG/DL (8.5-10.4); CHLORIDE, SERUM 102 MMOL/L (96-112); CO2 (CARBON DIOXIDE) 34 MMOL/L (24-34); CREATININE 0.54 MG/DL (0.55-1.02); GFR AFRICAN AMERICAN 114 ML/MIN (>=60); GFR NON AFRICAN AMERICAN 98 ML/MIN (>=60); GLOBULIN 3.4 G/DL (2.5-4.1); POTASSIUM, SERUM 3.3 MMOL/L (3.5-5.3); SGOT(AST) 19 U/L (5-40); SGPT(ALT) 13 U/L (5-65); SODIUM, SERUM 140 MMOL/L (135-148); TOTAL BILIRUBIN 0.4 MG/DL (0-1.2); TOTAL PROTEIN 5.4 G/DL (6.0-8.5)
[2017-03-28 06:33] LABS: ALKALINE PHOSPHATASE 92 U/L (45-117); GLUCOSE, SERUM 89 MG/DL (60-99)
[2017-03-28 07:00] LABS: BAND NEUTROPHILS 3 %; EOSINOPHILS 1 %; EOSINOPHILS ABSOLUTE (CALC) 0.06 10/3/uL (0.0-0.53); LYMPHOCYTES 27 %; MONOCYTES 6 %; MONOCYTES ABSOLUTE (CALC) 0.38 10/3/uL (0.21-1.20); NEUTROPHILS ABSOLUTE (CALC) 4.16 10/3/uL (2.02-8.40); PLATELET ESTIMATE ADQ (ADEQUATE); RBC MORPHOLOGY NORM (NORMAL); SEGMENTED NEUTROPHIL (0) 63 %; TOTAL NUCLEATED CELLS 100
[2017-03-29 05:13] LABS: BASOPHILS 0.2 %; BASOPHILS ABSOLUTE 0.02 10/3/uL (0.0-0.16); EOSINOPHILS 4.7 %; EOSINOPHILS ABSOLUTE 0.39 10/3/uL (0.0-0.53); HEMOGLOBIN 8.7 g/dL (12.0-16.0); IMMATURE GRANULOCYTES 0.5 %; IMMATURE GRANULOCYTES ABSOLUTE 0.04 10/3/uL (0.0-0.11); LYMPHOCYTES 22.5 %; LYMPHOCYTES ABSOLUTE 1.86 10/3/uL (0.67-4.30); MEAN CORPUS HGB CONC 31.4 g/dL (32.0-36.0); MEAN CORPUSCULAR HEMOGLOB 27.3 pg (26.0-34.0); MEAN CORPUSCULAR VOLUME 86.8 fL (80-100); MEAN PLATELET VOLUME 9.4 fL (9.2-13.0); MONOCYTES 10.1 %; MONOCYTES ABSOLUTE 0.84 10/3/uL (0.21-1.20); NEUTROPHILS ABSOLUTE 5.13 10/3/uL (2.02-8.40); RBC DISTRIBUTION WIDTH 15.4 % (12.0-16.0); RED CELL COUNT 3.19 10/6/uL (4.0-5.6); WHITE BLOOD CELLS 8.3 10/3/uL (4.5-10.5)
[2017-03-29 05:17] LABS: HEMATOCRIT 27.7 % (36.0-48.0); MANUAL DIFF NO %; PLATELET COUNT 559 10/3/uL (150-400)
[2017-03-29 05:25] LABS: BUN (BLOOD UREA NITROGEN) 7 MG/DL (6-23); CALCIUM, SERUM 8.6 MG/DL (8.5-10.4); CHLORIDE, SERUM 100 MMOL/L (96-112); CO2 (CARBON DIOXIDE) 35 MMOL/L (24-34); CREATININE 0.65 MG/DL (0.55-1.02); GFR AFRICAN AMERICAN 107 ML/MIN (>=60); GFR NON AFRICAN AMERICAN 93 ML/MIN (>=60); POTASSIUM, SERUM 3.7 MMOL/L (3.5-5.3); SODIUM, SERUM 140 MMOL/L (135-148)
[2017-03-29 05:26] LABS: GLUCOSE, SERUM 107 MG/DL (60-99)
[2017-03-30 04:16] LABS: BASOPHILS 0.3 %; BASOPHILS ABSOLUTE 0.02 10/3/uL (0.0-0.16); EOSINOPHILS 3.8 %; EOSINOPHILS ABSOLUTE 0.27 10/3/uL (0.0-0.53); HEMOGLOBIN 8.9 g/dL (12.0-16.0); IMMATURE GRANULOCYTES 0.7 %; IMMATURE GRANULOCYTES ABSOLUTE 0.05 10/3/uL (0.0-0.11); LYMPHOCYTES 21.8 %; LYMPHOCYTES ABSOLUTE 1.55 10/3/uL (0.67-4.30); MEAN CORPUS HGB CONC 31.8 g/dL (32.0-36.0); MEAN CORPUSCULAR HEMOGLOB 27.8 pg (26.0-34.0); MEAN CORPUSCULAR VOLUME 87.5 fL (80-100); MEAN PLATELET VOLUME 9.3 fL (9.2-13.0); MONOCYTES 11.1 %; MONOCYTES ABSOLUTE 0.79 10/3/uL (0.21-1.20); NEUTROPHILS 62.3 %; NEUTROPHILS ABSOLUTE 4.43 10/3/uL (2.02-8.40); PLATELET COUNT 525 10/3/uL (150-400); RBC DISTRIBUTION WIDTH 15.1 % (12.0-16.0); WHITE BLOOD CELLS 7.1 10/3/uL (4.5-10.5)
[2017-03-30 04:18] LABS: MANUAL DIFF NO %
[2017-03-30 04:33] LABS: BUN (BLOOD UREA NITROGEN) 7 MG/DL (6-23); CALCIUM, SERUM 8.8 MG/DL (8.5-10.4); CHLORIDE, SERUM 101 MMOL/L (96-112); CO2 (CARBON DIOXIDE) 33 MMOL/L (24-34); CREATININE 0.45 MG/DL (0.55-1.02); GFR AFRICAN AMERICAN 121 ML/MIN (>=60); GFR NON AFRICAN AMERICAN 104 ML/MIN (>=60); POTASSIUM, SERUM 3.9 MMOL/L (3.5-5.3); SODIUM, SERUM 141 MMOL/L (135-148)
[2017-03-30 04:35] LABS: GLUCOSE, SERUM 85 MG/DL (60-99)
[2017-03-30 11:05] LABS: ASCORBIC ACID (UR NOT ORDER) NEG (NEG); BILIRUBIN, URINE NEGATIVE (NEG); KETONE, URINE NEGATIVE (NEG); LEUKOCYTE ESTERASE(NOT OR TRACE (NEG); WBC (NOT ORDERED) (RFLEX) 14 (0-5)
[2017-03-31 04:20] LABS: BASOPHILS 0.2 %; BASOPHILS ABSOLUTE 0.01 10/3/uL (0.0-0.16); EOSINOPHILS 0 %; HEMATOCRIT 28.6 % (36.0-48.0); HEMOGLOBIN 9.1 g/dL (12.0-16.0); IMMATURE GRANULOCYTES 0.5 %; IMMATURE GRANULOCYTES ABSOLUTE 0.03 10/3/uL (0.0-0.11); LYMPHOCYTES ABSOLUTE 0.84 10/3/uL (0.67-4.30); MEAN CORPUS HGB CONC 31.8 g/dL (32.0-36.0); MEAN CORPUSCULAR HEMOGLOB 27.7 pg (26.0-34.0); MEAN CORPUSCULAR VOLUME 87.2 fL (80-100); MEAN PLATELET VOLUME 9.3 fL (9.2-13.0); MONOCYTES 3.3 %; MONOCYTES ABSOLUTE 0.21 10/3/uL (0.21-1.20); NEUTROPHILS ABSOLUTE 5.37 10/3/uL (2.02-8.40); PLATELET COUNT 506 10/3/uL (150-400); RED CELL COUNT 3.28 10/6/uL (4.0-5.6); WHITE BLOOD CELLS 6.5 10/3/uL (4.5-10.5)
[2017-03-31 04:21] LABS: MANUAL DIFF NO %
[2017-03-31 04:42] LABS: CALCIUM, SERUM 9.1 MG/DL (8.5-10.4); CHLORIDE, SERUM 102 MMOL/L (96-112); CO2 (CARBON DIOXIDE) 32 MMOL/L (24-34); CREATININE 0.53 MG/DL (0.55-1.02); GFR AFRICAN AMERICAN 115 ML/MIN (>=60); GFR NON AFRICAN AMERICAN 99 ML/MIN (>=60); POTASSIUM, SERUM 3.7 MMOL/L (3.5-5.3); SODIUM, SERUM 140 MMOL/L (135-148)
[2017-03-31 04:43] LABS: BUN (BLOOD UREA NITROGEN) 13 MG/DL (6-23); GLUCOSE, SERUM 146 MG/DL (60-99)
[2017-04-01 05:11] LABS: BASOPHILS 0.1 %; BASOPHILS ABSOLUTE 0.01 10/3/uL (0.0-0.16); EOSINOPHILS 0.4 %; EOSINOPHILS ABSOLUTE 0.03 10/3/uL (0.0-0.53); HEMOGLOBIN 8.2 g/dL (12.0-16.0); IMMATURE GRANULOCYTES 0.2 %; IMMATURE GRANULOCYTES ABSOLUTE 0.02 10/3/uL (0.0-0.11); LYMPHOCYTES 24.3 %; LYMPHOCYTES ABSOLUTE 2.07 10/3/uL (0.67-4.30); MEAN CORPUS HGB CONC 31.5 g/dL (32.0-36.0); MEAN CORPUSCULAR HEMOGLOB 27.5 pg (26.0-34.0); MEAN CORPUSCULAR VOLUME 87.2 fL (80-100); MEAN PLATELET VOLUME 9.3 fL (9.2-13.0); MONOCYTES 9.9 %; MONOCYTES ABSOLUTE 0.84 10/3/uL (0.21-1.20); NEUTROPHILS 65.1 %; NEUTROPHILS ABSOLUTE 5.55 10/3/uL (2.02-8.40); PLATELET COUNT 467 10/3/uL (150-400); RBC DISTRIBUTION WIDTH 15.3 % (12.0-16.0); RED CELL COUNT 2.98 10/6/uL (4.0-5.6); WHITE BLOOD CELLS 8.5 10/3/uL (4.5-10.5)
[2017-04-01 05:13] LABS: MANUAL DIFF NO %
[2017-04-01 05:29] LABS: A/G RATIO 0.7 (0.7-1.9); ALBUMIN 2.3 G/DL (3.5-5.0); ALKALINE PHOSPHATASE 92 U/L (45-117); BUN (BLOOD UREA NITROGEN) 15 MG/DL (6-23); CALCIUM, SERUM 8.6 MG/DL (8.5-10.4); CHLORIDE, SERUM 102 MMOL/L (96-112); CO2 (CARBON DIOXIDE) 33 MMOL/L (24-34); CREATININE 0.51 MG/DL (0.55-1.02); GFR AFRICAN AMERICAN 116 ML/MIN (>=60); GFR NON AFRICAN AMERICAN 100 ML/MIN (>=60); GLOBULIN 3.5 G/DL (2.5-4.1); SGOT(AST) 31 U/L (5-40); SGPT(ALT) 19 U/L (5-65); SODIUM, SERUM 140 MMOL/L (135-148); TOTAL BILIRUBIN 0.3 MG/DL (0-1.2); TOTAL PROTEIN 5.8 G/DL (6.0-8.5)
[2017-04-01 05:30] LABS: GLUCOSE, SERUM 89 MG/DL (60-99)
[2017-04-01 06:23] LABS: SED RATE 78 MM/HR (0-20)
[2017-04-02] MEDS ORDERED: V2 PO (18:19)
[2017-04-02] MEDS ORDERED: OXYCOD PO (18:19)
[2017-04-02] MEDS ORDERED: MSCONT15 PO (18:19)
[2017-04-02] MEDS ORDERED: CORTEF5 PO (18:22)
[2017-06-18] MEDS ORDERED: CELEXA40 MG PO (18:10)
[2017-06-18] MEDS ORDERED: LIOR10 PO (18:11)
[2017-06-18] MEDS ORDERED: C25 PO (18:11)
[2017-06-18] MEDS ORDERED: ESTRACE1 MG PO (18:11)
[2017-06-18] MEDS ORDERED: CAT2 PO (18:12)
[2017-06-18] MEDS ORDERED: NEUR600 PO (18:12)
[2017-06-18] MEDS ORDERED: PROTONIX PO (18:12)
[2017-06-18] MEDS ORDERED: 8 HOUR650 MG PO (18:13)
[2017-06-18] MEDS ORDERED: PR25 PO (18:13)
[2017-06-18] MEDS ORDERED: CYMBALTA60 PO (18:13)
[2017-06-20] MEDS ORDERED: VIBRATAB100 MG PO (15:33)
[2017-06-20] MEDS ORDERED: V5 PO (15:33)
[2017-06-20] MEDS ORDERED: DURICEF PO (15:33)
[2017-06-20] MEDS ORDERED: MSCONT15 PO (15:34)
[2017-06-20] MEDS ORDERED: PERCOCET 10/3251 TAB PO (15:34)
== END 2017-04-02 19:00 | disposition home health service (06) | DRG 856 ==
LOC: ER 21:46 → IMCU 03-24 02:46 → 3SO 03-31 17:05
PROVIDERS: Hospitalist; Internal Medicine; Internal Medicine Infectious Disease; Orthopaedic Surgery
PROC: 02HV33Z Insertion of Infusion Device into Superior Vena Cava, Percutaneous Approach (ICD-10-PCS; 2017-03-26)
PROC: 4A02X4A Measurement of Cardiac Electrical Activity, Guidance, External Approach (ICD-10-PCS; 2017-03-26)
PROC: 0JD70ZZ Extraction of Back Subcutaneous Tissue and Fascia, Open Approach (ICD-10-PCS; principal; 2017-03-29)
PROC: 02HV33Z Insertion of Infusion Device into Superior Vena Cava, Percutaneous Approach (ICD-10-PCS; 2017-03-29)
PROC: 4A02X4A Measurement of Cardiac Electrical Activity, Guidance, External Approach (ICD-10-PCS; 2017-03-29)
DX: T81.4XXA Infection following a procedure, initial encounter (principal); A41.53 Sepsis due to Serratia; R65.21 Severe sepsis with septic shock; E44.0 Moderate protein-calorie malnutrition; D62 Acute posthemorrhagic anemia; N39.0 Urinary tract infection, site not specified; C50.919 Malignant neoplasm of unspecified site of unspecified female breast; B96.20 Unspecified Escherichia coli [E. coli] as the cause of diseases classified elsewhere; Z79.891 Long term (current) use of opiate analgesic; Z68.20 Body mass index [BMI] 20.0-20.9, adult
CPT/HCPCS: 10030; 36415; 36569; 49418; 71010; 74177; 80048; 80053; 80202; 80305; 80307; 81001; 82533; 82607; 82728; 83540; 83550; 83605; 83735; 83880; 84100; 84132; 84145; 84443; 84484; 85025; 85610; 85652; 85730; 86140; 86850; 86870; 86900; 86901; 86920; 86922; 87015; 87040; 87070; 87075; 87077; 87086; 87102; 87116; 87186; 87205; 87641; 93005; 96365; 96366; 96367; 96375; 97116-GP; 97162-GP; 97530-GP; 99285; A9270-GY; C1729; C1751; C1769; G8978-CL-GP; G8979-CJ-GP; J0330; J0690; J0692; J1170; J1720; J2185; J2250; J2405; J2710; J3010; J3370; P9016; P9047; P9059; Q9967